=== PATIENT | female | born 1980 | race Caucasian/White ===

== ENCOUNTER 2020-03-29 10:11 | Emergency (ER) | payer BC, SELFPAY ==
[~2020-03-29] VITALS: Ht 167.6 cm; Wt 72.6 kg
[2020-03-29 10:21] VITALS: Ht 167.6 cm; Wt 72.6 kg
[2020-03-29 11:41] VITALS: BP 135/82
== END 2020-03-29 11:41 | disposition home or self-care (01) ==
LOC: ED 10:11
DX: U07.1 COVID-19 (principal); Z88.2 Allergy status to sulfonamides
CPT/HCPCS: U0003